=== PATIENT | female | born 1995 | race Hispanic/Latino ===

== ENCOUNTER 2018-02-04 23:11 | Emergency (ER) | payer MEDICAID | END 2018-02-05 01:09 | disposition home or self-care (01) | LOC: EDH 23:11 | DX: H65.02 Acute serous otitis media, left ear (principal); Z98.51 Tubal ligation status | CPT/HCPCS: 99281 ==

== ENCOUNTER 2019-04-18 23:33 | Emergency (ER) | payer MEDICAID, OTHER ==
[2019-04-19 00:09] LABS: APPEARANCE,URINE Clear (CLEAR); BILIRUBIN,URINE Negative (NEGATIVE); COLOR,URINE Yellow (YELLOW); GLUCOSE, URINE (UA) Negative (NEGATIVE); KETONES,URINE Negative (NEGATIVE); LEUKOCYTE ESTERASE ,URINE Trace (NEGATIVE); NITRATE,URINE Negative (NEGATIVE); OCCULT BLOOD,URINE Negative (NEGATIVE); PH,URINE 7.5 (5.0-8.0); PROTEIN,URINE Negative (NEGATIVE)
[2019-04-19 00:12] LABS: HCG,QUAL RESULT NEGATIVE (NEGATIVE)
[2019-04-19 00:20] LABS: BACTERIA,URINE Few /HPF (None Seen); RBC,URINE None Seen /HPF (0-1)
[2019-04-19] MEDS ORDERED: DEXAMETHASONE SOD PHOSPHATE 10MG/ML 1ML VIAL ONE (00:34)
[2019-04-19] MEDS ORDERED: DIAZEPAM 5 MG TABLET ONE (00:35)
[2019-04-19] MEDS ORDERED: KETOROLAC TROMETHAMINE 60 MG/2 ML VIAL ONE (00:35)
== END 2019-04-19 01:04 | disposition home or self-care (01) ==
LOC: EDH 23:33
DX: M54.5 Low back pain (principal); R11.0 Nausea; Z98.51 Tubal ligation status
CPT/HCPCS: 81001; 81025; 96372 ×2; 99284; J1100; J1885

== ENCOUNTER 2021-03-14 21:59 | Emergency (ER) | payer SELFPAY ==
[2021-03-14] MEDS ORDERED: HALOPERIDOL INJ 5 MG/ML VIAL ONE (22:20)
[2021-03-14] MEDS ORDERED: DIPHENHYDRAMINE HCL 25 MG CAPSULE ONE (22:20)
== END 2021-03-15 00:26 | disposition home or self-care (01) ==
LOC: EDH 21:59
DX: G44.229 Chronic tension-type headache, not intractable (principal); J02.9 Acute pharyngitis, unspecified
CPT/HCPCS: 87880; 96372; 99283; J1630; Q0163

== ENCOUNTER 2022-06-04 02:43 | Emergency (ER) | payer MEDICAID ==
[~2022-06-04] VITALS: Ht 172.7 cm; Wt 117.0 kg
[2022-06-04 03:28] LABS: APPEARANCE,URINE CLEAR (CLEAR); BILIRUBIN,URINE NEGATIVE (NEGATIVE); COLOR,URINE YELLOW (YELLOW); GLUCOSE, URINE (UA) NEGATIVE (NEGATIVE); KETONES,URINE NEGATIVE (NEGATIVE); LEUKOCYTE ESTERASE ,URINE SMALL (NEGATIVE); NITRATE,URINE NEGATIVE (NEGATIVE); OCCULT BLOOD,URINE MODERATE (NEGATIVE); PH,URINE 5.5 (5.0-8.0); PROTEIN,URINE NEGATIVE (NEGATIVE); UROBILINOGEN,URINE 0.2 mg/dL (0.2-1.0)
[2022-06-04 03:30] LABS: HCG,QUAL RESULT NEGATIVE (NEGATIVE)
[2022-06-04 03:37] LABS: BACTERIA,URINE Moderate /HPF (None Seen)
[2022-06-04 03:38] LABS: MUCUS,URINE Moderate LPF (None Seen); SQUAMOUS EPITHELIAL CELL,UR Moderate /HPF (0-2)
[2022-06-04] MEDS: KETOROLAC 30MG VIAL (30MG/ML) IVP ONE (04:12)
[2022-06-04] MEDS: DiphenhydrAMINE HCL 50 MG/ML VIAL IV ONE (04:12)
[2022-06-04] MEDS: METOCLOPRAMIDE 10 MG/2 ML VIAL IVP ONE (04:12)
[2022-06-04] MEDS: ACETAZOLAMIDE SODIUM 500 MG VIAL IV STA (05:24)
[2022-06-04] MEDS: DEXAMETHASONE SOD PHOSPHATE 4 MG/ML 1ML VIAL IVP ONE (05:25)
[2022-06-04] MEDS: VALPROATE SOD 250 MG/5 ML (PO) PO ONE (05:25)
[2022-06-04] MEDS: CYCLOBENZAPRINE HCL 10 MG TABLET PO ONE (06:37)
[2022-06-04] MEDS: GABAPENTIN 300 MG CAPSULE PO SCH (06:37)
[2022-06-04] MEDS: ACETAZOLAMIDE SODIUM 500 MG VIAL IV SCH (06:37)
[2022-06-04] MEDS ORDERED: GABA300C PO (07:15)
[2022-06-04 07:42] VITALS: BP 113/57
== END 2022-06-04 07:41 | disposition home or self-care (01) ==
LOC: EDH 02:43
DX: G43.919 Migraine, unspecified, intractable, without status migrainosus (principal); Z79.1 Long term (current) use of non-steroidal anti-inflammatories (NSAID); Z79.52 Long term (current) use of systemic steroids
CPT/HCPCS: 99285; 96374; 96375; 87088; 81001; 81025; 96376; J1100; J1120 ×2; J1200; J1885; J2765

== ENCOUNTER 2022-07-12 00:12 | Emergency (ER) | payer MEDICAID ==
[~2022-07-12] VITALS: Ht 172.7 cm; Wt 125.2 kg
[~2022-07-12 00:12] MED LIST: GABA300C PO
[2022-07-12 00:39] VITALS: BP 121/68
[2022-07-12] MEDS ORDERED: KETOROLAC 60 MG VIAL (30MG/ML) IM ONE ×2 (00:43→01:00)
[2022-07-12] MEDS ORDERED: IBUP-2070 PO (00:43)
[2022-07-12] MEDS ORDERED: CYCL10TA16 PO (00:43)
[2022-07-12] MEDS ORDERED: CYCLOBENZAPRINE HCL 10 MG TABLET ONE (00:44)
[2022-07-12] MEDS ORDERED: CYCLOBENZAPRINE HCL 10 MG TABLET PO ONE (01:00)
== END 2022-07-12 00:53 | disposition home or self-care (01) ==
LOC: EDH 00:12
DX: S39.012A Strain of muscle, fascia and tendon of lower back, initial encounter (principal); S29.012A Strain of muscle and tendon of back wall of thorax, initial encounter; Z79.899 Other long term (current) drug therapy; X58.XXXA Exposure to other specified factors, initial encounter; Y93.89 Activity, other specified; Y92.89 Other specified places as the place of occurrence of the external cause; Y99.8 Other external cause status
CPT/HCPCS: 99284; 96372; J1885

== ENCOUNTER 2022-10-25 17:56 | Emergency (ER) | payer MEDICAID ==
[~2022-10-25] VITALS: Ht 172.7 cm; Wt 122.5 kg
[~2022-10-25 17:56] MED LIST changes: +CYCL10TA16 PO; +IBUP-2070 PO
[2022-10-25 18:40] VITALS: BP 124/78
== END 2022-10-25 19:35 | disposition left against medical advice (07) ==
LOC: EDH 17:56
DX: J02.9 Acute pharyngitis, unspecified (principal); R05.9 Cough, unspecified; H92.02 Otalgia, left ear; Z20.822 Contact with and (suspected) exposure to COVID-19; Z53.21 Procedure and treatment not carried out due to patient leaving prior to being seen by health care provider
CPT/HCPCS: 87635; 87880; 87804 ×2; C9803